=== PATIENT | male | born 1955 | race Caucasian/White ===

== ENCOUNTER 2017-07-26 07:57 | Day surgery (SDC) | payer BC ==
[~2017-07-26 07:57] MED LIST: Lactated Ringers 1,000 ML IV SCH; Lidocaine 1% 4 ML ONE; Lidocaine 1%/Sod Bicarbonate in NS 8.4% 1 ML Syringe IDERM PRN; Midazolam 1 MG/ML 2 ML SDV ONE; Propofol 200 MG/20 ML SDV ONE; Sodium Chloride 0.9% 10 ML Syringe FLUSH PRN; fentaNYL 100 MCG/2 ML SDV ONE
--- NOTE | 2017-07-26 08:13 | PCM.PREANE ---
Preanesthetic Assessment - Anesthesia/Transfusion/Family Hx Anesthesia History: Prior Anesthesia Without Reaction Family History of Anesthesia Reaction: No Transfusion History: No Prior Transfusion(s) Type of Transfusion Reactions: Reports: Unknown - Review of Systems General: No Symptoms Pulmonary: No Symptoms Cardiovascular: No Symptoms Gastrointestinal: No Symptoms Neurological: No Symptoms Other: Reports: None - Physical Assessment NPO Status Date: 07/25/17 NPO Status Time: 21:00 Pulse: 68 O2 Sat by Pulse Oximetry: 97 Respiratory Rate: 16 Blood Pressure: 160/103 Temperature: 97.6 F Height: 5 ft 7 in Weight: 80.286 kg ASA Class: 2 Mental Status: Alert & Oriented x3 Airway Class: Mallampati = 1 Dentition: Reports: Normal Dentition Thyro-Mental Finger Breadths: 3 Mouth Opening Finger Breadths: 3 ROM/Head Extension: Full Lungs: Clear to Auscultation, Normal Respiratory Effort Cardiovascular: Regular Rate, Regular Rhythm - Allergies Allergies/Adverse Reactions: Allergies Allergy/AdvReac Type Severity Reaction Status Date / Time No Known Allergies Allergy Verified 07/25/17 15:04 - Blood Blood Available: No - Acknowledgements Anesthesia Type Planned: MAC Pt an Appropriate Candidate for the Planned Anesthesia: Yes Alternatives and Risks of Anesthesia Discussed w Pt/Guardian: Yes Pt/Guardian Understands and Agrees with Anesthesia Plan: Yes PreAnesthesia Questionnaire HEENT History: Reports: None Cardiovascular History: Reports: High Cholesterol, Hypertension Respiratory History: Reports: Other (See Below) Other Respiratory History: lung sarcoidosis Gastrointestinal History: Reports: None Genitourinary History: Reports: None BAGGAGE CLERK History: Reports: None Musculoskeletal History: Reports: Other (See Below) Other Musculoskeletal History: knee pain Neurological History: Reports: None Psychiatric History: Reports: None Endocrine/Metabolic History: Reports: Hypothyroidism Hematologic History: Reports: None Immunologic History: Reports: None Oncologic (Cancer) History: Reports: None Dermatologic History: Reports: None - Past Surgical History HEENT Surgical History: Reports: None Cardiovascular Surgical History: Reports: None Respiratory Surgical History: Reports: None GI Surgical History: Reports: Colonoscopy Female Surgical History: Reports: None Male Surgical History: Reports: None Endocrine Surgical History: Reports: None Neurological Surgical History: Reports: None Musculoskeletal Surgical History: Reports: Arthroscopic Knee, Shoulder Surgery Oncologic Surgical History: Reports: None, Other (See Below) (kidney biopsy and lung biopsy) Dermatological Surgical History: Reports: None - SUBSTANCE USE Smoking Status *Q: Former Smoker (campos dec 1980) Tobacco Use Within Last Twelve Months: Snuff/Dip Second Hand Smoke Exposure: No Days Per Week of Alcohol Use: 7 Number of Drinks Per Day: 5 (beer whiskey) Total Drinks Per Week: 35 Recreational Drug Use History: No - HOME MEDS Home Medications: Home Meds Chlorthalidone 25 mg PO DAILY 06/08/16 [History] Levothyroxine [Synthroid] 50 mcg PO DAILY 07/25/17 [History] Lisinopril [Lisinopril] 10 mg PO DAILY 07/25/17 [History] Tacrolimus [Tacrolimus] 1 cap PO BID 07/25/17 [History] Torsemide [Torsemide] 20 mg PO DAILY 07/25/17 [History] atorvaSTATin Calcium [Atorvastatin Calcium] 20 mg PO DAILY 07/25/17 [History] - CURRENT (IN HOUSE) MEDS Current Meds: Current Medications Lactated Ringer's (Ringers, Lactated) 1,000 mls @ 125 mls/hr IV ASDIRECTED TD Stop: 07/26/17 23:00 Lidocaine/Sodium Bicarbonate (Buffered Lidocaine 1% In Ns 8.4%) 0.25 ml IDERM ONETIME PRN PRN Reason: Prior to IV Start Stop: 07/26/17 18:00 Sodium Chloride (Saline Flush) 10 ml FLUSH ASDIRECTED PRN PRN Reason: Keep Vein Open Stop: 07/26/17 18:00 Discontinued Medications Fentanyl (Sublimaze) Confirm Administered Dose 100 mcg .ROUTE .STK-MED ONE Stop: 07/26/17 07:38 Lidocaine HCl (Xylocaine-Mpf 1%) Confirm Administered Dose 4 mls @ as directed .ROUTE .STK-MED ONE Stop: 07/26/17 07:38 Midazolam HCl (Versed 1 Mg/Ml) Confirm Administered Dose 2 mg .ROUTE .STK-MED ONE Stop: 07/26/17 07:39 Propofol (Diprivan 20 Ml) Confirm Administered Dose 200 mg .ROUTE .STK-MED ONE Stop: 07/26/17 07:38
[2017-07-26] MEDS ORDERED: Propofol 200 MG/20 ML SDV ONE (09:18)
[2017-07-26 09:35] VITALS: BP 126/82
--- NOTE | 2017-07-26 09:35 | PCM48HPAN ---
Post Anesthesia Note - EVALUATION WITHIN 48HRS OF ANESTHETIC Vital Signs in Normal Range: Yes Patient Participated in Evaluation: Yes Respiratory Function Stable: Yes Airway Patent: Yes Cardiovascular Function Stable: Yes Hydration Status Stable: Yes Pain Control Satisfactory: Yes Nausea and Vomiting Control Satisfactory: Yes Mental Status Recovered: Yes Pulse Rate: 65 SaO2: 94 Resp Rate: 20 Temperature: 97.6 F Blood Pressure: 126/82
--- NOTE | 2017-07-26 09:39 | PCM.OPNOTE ---
- General Post-Op/Procedure Note Date of Surgery/Procedure: 07/26/17 Operative Procedure(s): 1. Esophagogastroduodenoscopy with gastric biopsy 2. 2. Screening colonoscopy with sigmoid polypectomy Findings: 1. Red cells in fibrinous material suggesting gastritis but no tahira ulcers or erosions 2. Prostate enlargement 3. Sigmoid diverticulosis uncomplicated 4. Diminutive sigmoid polyp less than 5 mm in diameter Pre Op Diagnosis: 1. Intermittent reflux symptoms. 2. Screening colonoscopy Post-Op Diagnosis: 1. Mild gastritis. 2. Prostate enlargement. 3. Sigmoid diverticulosis -- uncomplicated. 4. Diminutive sigmoid polyp Anesthesia Technique: MAC, Moderate Sedation Primary Surgeon: Rocky Benoit Pathology: 1. Gastric biopsies 2. Sigmoid polypectomy EBL in mLs: 0 Complications: None Condition: Good Free Text/Narrative:: After adequate IV sedation and analgesia was obtained with monitoring the patient was placed on his left side. Through a bite-block lubricated upper endoscope was inserted into the esophagus and advanced to the stomach without difficulty. Additional air was given here followed by passage of the scope through the pylorus into the second part of the duodenum. The second and first parts were endoscopically normal. The antrum was endoscopically normal as well. There are a few speckles of red blood present within the body of the stomach but no ulcers or erosions were seen throughout the exam. The body of the stomach was grossly normal. In the retroflexed view the fundus and cardiac areas were unremarkable. There was no hiatal hernia. The GE junction was unremarkable. Biopsies were taken of the stomach for histologic review. The body of the esophagus was endoscopically normal. The vocal cords were briefly visualized on extubation and were normal. Perianal inspection was unremarkable. Digital rectal examination revealed an enlarged prostate with no nodules appreciated. A lubricated colonoscope was inserted into the rectum and advanced to the cecum without difficulty. The bowel preparation was excellent. The cecum right colon, transverse and descending colons were endoscopically normal with no mass lesions or inflammatory changes seen. The sigmoid had a few scattered uncomplicated diverticuli. There was a diminutive 5 mm polyp within the distal sigmoid which was removed by cold forceps polypectomy. The rectum in both views was unremarkable. Air was removed as I finished this procedure which he tolerated well. [employer] photographs were taken for the patient and for the medical record.
== END 2017-07-26 10:29 | disposition home or self-care (01) ==
LOC: JD.SDS 07:57
PROVIDERS: ATTEND Surgery
DX: K63.5 Polyp of colon (principal); K29.50 Unspecified chronic gastritis without bleeding; K57.30 Diverticulosis of large intestine without perforation or abscess without bleeding; K21.9 Gastro-esophageal reflux disease without esophagitis; I10 Essential (primary) hypertension; E03.9 Hypothyroidism, unspecified; E78.00 Pure hypercholesterolemia, unspecified; D86.0 Sarcoidosis of lung; N40.0 Benign prostatic hyperplasia without lower urinary tract symptoms; Z79.899 Other long term (current) drug therapy; Z87.891 Personal history of nicotine dependence
CPT/HCPCS: 43239; 45380; J2250; J3010; J7120; J2704

== ENCOUNTER 2021-07-06 09:41 | Day surgery (SDC) | payer BC ==
[~2021-07-06 09:41] MED LIST changes: -Lidocaine 1% 4 ML ONE; -Midazolam 1 MG/ML 2 ML SDV ONE; -Propofol 200 MG/20 ML SDV ONE; +Sodium Chloride 0.9% 10 ML Syringe FLUSH SCH; -fentaNYL 100 MCG/2 ML SDV ONE
[2021-07-06] MEDS ORDERED: Bupivacaine 0.5% 30 ML SDV ONE (10:03)
[2021-07-06] MEDS ORDERED: Lactated Ringers 1,000 ML IV SCH (10:15)
[2021-07-06] MEDS ORDERED: Propofol 200 MG/20 ML SDV ONE (10:19)
[2021-07-06] MEDS ORDERED: Rocuronium 50 MG/5 ML Vial ONE (10:19)
[2021-07-06] MEDS ORDERED: ceFAZolin 1 GM Vial ONE (10:19)
[2021-07-06] MEDS ORDERED: Midazolam 1 MG/ML 2 ML SDV ONE (10:20)
[2021-07-06] MEDS ORDERED: fentaNYL 100 MCG/2 ML SDV ONE (10:20)
[2021-07-06] MEDS ORDERED: Ondansetron 4 MG/2 ML SDV ONE (11:19)
[2021-07-06] MEDS ORDERED: HYDROmorphone 0.5 MG/0.5 ML Syringe IVPUSH PRN (11:57)
[2021-07-06] MEDS ORDERED: Ondansetron 4 MG/2 ML SDV IVPUSH PRN (11:57)
[2021-07-06] MEDS ORDERED: fentaNYL 100 MCG/2 ML SDV IVPUSH PRN (11:57)
[2021-07-06] MEDS ORDERED: oxyCODONE 5 MG Tab PO ONE (12:09)
[2021-07-06 14:54] VITALS: BP 159/80; PULSE 72
== END 2021-07-06 14:10 | disposition home or self-care (01) ==
LOC: JD.SDS 09:41
PROVIDERS: ATTEND Surgery
DX: K42.9 Umbilical hernia without obstruction or gangrene (principal); I10 Essential (primary) hypertension; E03.9 Hypothyroidism, unspecified; I25.2 Old myocardial infarction; E78.00 Pure hypercholesterolemia, unspecified; Z79.899 Other long term (current) drug therapy; Z79.82 Long term (current) use of aspirin; Z79.890 Hormone replacement therapy; Z98.890 Other specified postprocedural states; Z87.891 Personal history of nicotine dependence; Z88.8 Allergy status to other drugs, medicaments and biological substances
CPT/HCPCS: 49585; A9270; C1781; J0690; J2250; J2405; J2704; J2710; J3010; J3490; J7120; 00750

== ENCOUNTER 2025-03-07 13:06 | Emergency (ER) | payer MEDICARE, BC ==
[2025-03-07] MEDS: cefTRIAXone 2 GM in Water For Injection, Sterile 20 ML IVPUSH ONE (14:27)
[2025-03-07] MEDS: metroNIDAZOLE/Normal Saline 500 MG in Premix Bag 1 BAG IV ONE (16:13)
[2025-03-07 18:54] VITALS: BP 146/67; PULSE 73
== END 2025-03-07 18:15 ==
LOC: JD.ED 13:06
DX: J85.1 Abscess of lung with pneumonia (principal); J85.3 Abscess of mediastinum; N17.8 Other acute kidney failure; I10 Essential (primary) hypertension; I25.2 Old myocardial infarction; E78.00 Pure hypercholesterolemia, unspecified; E03.9 Hypothyroidism, unspecified; Z79.899 Other long term (current) drug therapy; Z79.82 Long term (current) use of aspirin; Z88.8 Allergy status to other drugs, medicaments and biological substances; Z79.890 Hormone replacement therapy; Z12.5 Encounter for screening for malignant neoplasm of prostate; E78.5 Hyperlipidemia, unspecified; R73.01 Impaired fasting glucose; N20.2 Calculus of kidney with calculus of ureter; N17.9 Acute kidney failure, unspecified; J06.9 Acute upper respiratory infection, unspecified
CPT/HCPCS: 36415; 71250; 80053; 85027; 96361; 96365; 96375; 99285; A4216; J0696; J7030; J1836